=== PATIENT | female | born 1995 | race Caucasian/White ===

== ENCOUNTER 2017-02-25 06:13 | Inpatient (IN) | payer BC ==
--- NOTE | 2017-02-15 11:04 | HP ---
Admitting History and Physical - Primary Care Physician PCP: Jimmie Graves - Admission Chief Complaint: BRCA positive History of Present Illness: 21 year old nulliparous premenapausal female with BRCA mutation and family history of breast cancer . MRI breast 02/03/2017. showed 7 mm ovoid mass lower lateral portion of left breast . US recommended to evaulate new finding, and six month bilateral MRI Birad 0. She is undergoing Bilateral prophylactic mastectomies with reconstruction. History Source: Patient Limitations to Obtaining History: No Limitations - Past Surgical History Additional Past Surgical History: Right thumb trigger finger 1996 - Smoking History Smoking history: Never smoked Have you smoked in the past 12 months: No - Alcohol/Substance Use Hx Alcohol Use: No Home Medications - Allergies Allergies/Adverse Reactions: Allergies Allergy/AdvReac Type Severity Reaction Status Date / Time Penicillins Allergy Verified 02/15/17 11:08 Family Disease History - Family Disease History Other Family History: maternal aunt x2 Breast cancer 32/35. mat 2nd cousin breast ca 30/breast cancer 37 Physical Examination Constitutional: Yes: Well Nourished Breast(s): Yes: Other (A cup breast symmetrical no palpable densities or adenopathy bilaterally) Problem List - Problems (1) BRCA gene mutation positive Code(s): Z15.01 - GENETIC SUSCEPTIBILITY TO MALIGNANT NEOPLASM OF BREAST Z15.02 - GENETIC SUSCEPTIBILITY TO MALIGNANT NEOPLASM OF OVARY Assessment/Plan Bilateral prophylactic mastectomies implant reconstruction
[2017-02-16 14:14] VITALS: BMI 24.0
[2017-02-25] MEDS ORDERED: LIDOCAINE 1%-EPI 1:100,000 30 ML MDV IJ ONE (07:05)
[2017-02-25] MEDS ORDERED: GUM MASTIC/STORAX/MSAL/ALCOHOL 1 DRP DROPSBTL MC ONE (07:05)
[2017-02-25] MEDS ORDERED: BUPIVACAINE HCL/PF 0.5% (5MG/ML) 10 ML VIAL ONE (07:05)
[2017-02-25] MEDS ORDERED: ceFAZolin SODIUM 1 GM VIAL ONE ×2 (07:05→08:17)
[2017-02-25] MEDS ORDERED: GENTAMICIN SO4 80 MG/2 ML VIAL ONE (07:05)
[2017-02-25] MEDS ORDERED: SUCCINYLCHOLINE CHLORIDE 200 MG/10 ML VIAL ONE (07:35)
[2017-02-25] MEDS ORDERED: PROPOFOL 20 ML ONE (07:35)
[2017-02-25] MEDS ORDERED: MIDAZOLAM HCL 2 MG/2 ML SINGLE DOSE VIAL ONE ×2 (07:35)
[2017-02-25] MEDS ORDERED: ROCURONIUM BROMIDE 50 MG/5 ML VIAL ONE ×2 (07:35→09:12)
[2017-02-25] MEDS ORDERED: LIDOCAINE HCL/PF 2% SDV 5ML VIAL ONE (07:37)
[2017-02-25] MEDS ORDERED: DEXAMETHASONE SOD PHOSPHATE/PF 10 MG/ML SDV ONE (07:45)
[2017-02-25] MEDS ORDERED: ROPIVACAINE HCL 0.5% 30ML VIAL ONE (07:45)
[2017-02-25] MEDS ORDERED: ONDANSETRON 4 MG/2 ML VIAL ONE (08:17)
[2017-02-25] MEDS ORDERED: DEXAMETHASONE SOD PHOSPHATE 4 MG/1 ML VIAL ONE (08:17)
[2017-02-25] MEDS ORDERED: DESFLURANE GAS 240 ML BOTTLE IH ONE (08:35)
[2017-02-25] MEDS ORDERED: ONDANSETRON 4 MG/2 ML VIAL IVPB PRN (10:10)
[2017-02-25] MEDS ORDERED: ACETAMINOPHEN 325 MG TABLET (FP) PO PRN (10:10)
[2017-02-25] MEDS ORDERED: DEXTROSE 5%-0.45% SALINE 1,000 ML IV SCH (10:15)
[2017-02-25] MEDS ORDERED: GLYCOPYRROLATE 0.2 MG/1 ML VIAL ONE (10:45)
[2017-02-25] MEDS ORDERED: NEOSTIGMINE METHYLSULFATE 0.5 MG/ML - 10 ML MDV ONE (10:45)
[2017-02-25] MEDS ORDERED: ACETAMINOPHEN 1000 MG/100 ML VIAL (NON FORMULARY) IVPB ONE (11:28)
[2017-02-25] MEDS ORDERED: diazePAM 5 MG TABLET PO PRN (11:28)
[2017-02-25] MEDS ORDERED: oxyCODONE HCL 5 MG TABLET PO PRN (11:28)
[2017-02-25] MEDS ORDERED: PROMETHAZINE HCL 25 MG/1 ML VIAL IVPUSH PRN (11:56)
[2017-02-25] MEDS: HYDROmorphone HCL CARPU-JECT 1 MG/1 ML DISP.SYRIN IVPUSH PRN ×2 (12:28→12:38)
[2017-02-25] MEDS: oxyCODONE HCL 5 MG TABLET PO PRN ×2 (14:02→21:15)
[2017-02-25] MEDS: ACETAMINOPHEN 325 MG TABLET (FP) PO SCH ×2 (18:19→23:56)
--- NOTE | 2017-02-25 18:54 | OP ---
DATE OF OPERATION: 02/25/2017 PREOPERATIVE DIAGNOSIS: High-risk for breast cancer, BRCA2 positive. POSTOPERATIVE DIAGNOSIS: High-risk for breast cancer, BRCA2 positive. PROCEDURE: Bilateral total nipple-sparing mastectomy through an inframammary approach with bilateral direct implant reconstruction with AlloDerm. PRIMARY SURGEON: Farrah Ramos MD SPRINKLER TENDER: QUIANA Lai Primary surgeon for the bilateral direct implant reconstruction: Dr. Farrah Escamilla, with his director of first impressions, QUIANA Vo. There were no complications. ANESTHESIA: General endotracheal anesthesia. Briefly, the patient is a 21-year-old nulliparous premenopausal white female of [place] descent. She has a strong family history with 2 maternal aunts who had breast cancer at age 32 and 35. She also has 2 maternal cousins who had breast cancer at age 30 and 37. Both the patient and her mother tested BRCA2 positive with a 2024 deletion 5 mutation. The patient was seen in consultation regarding risk reduction strategies back in September of 2016. She had undergone close surveillance to that point. She was told about the risk reduction strategies including mastectomy for risk reduction versus tamoxifen versus close surveillance. She was advised just to do close surveillance until her mid 20's. She then decided she wanted to go forward with risk reduction prophylactic mastectomy, and I did speak to her at length regarding this. She has definite concerns about breast cancer and understood that this is not a cosmetic procedure. She still wanted to go forward with the procedure and underwent breast MRI in January 2017, showing a slight density in the lateral aspect of the left breast, which was felt to be benign. Mammography was also performed and was negative. She was brought in for the procedure on February 25, 2017. In the holding area, site verification was made and informed consent was obtained. She was then brought in to the operating room and laid on the OR table in a supine position. Venodynes were placed on the lower extremities. She was given 1 g of Ancef prior to incision. Both breasts were sterilely prepped and draped in the usual fashion. She underwent general endotracheal anesthesia. The patient did undergo prepectoral block prior to coming to the OR, for postoperative pain control. The patient had inframammary incisions marked out bilaterally about 8 cm in length in the inframammary folds. The left mastectomy was 1st approached. Incision was made and the skin edges were everted and the breast was retracted inferiorly using Arjun clamps. The skin flap was raised using the PEAK radiofrequency device superiorly to the level of the clavicle, medially to the level of the sternum, laterally to the level of the latissimus, and inferiorly below the level of the inframammary fold. The breast was taken down off the pectoralis major muscle from inferior medial to superior lateral and completely removed intact. It was oriented with a long lateral and short superior suture and weighed to allow for appropriate cosmetic result. Skin flaps were trimmed for good cosmetic result. A retroareolar biopsy was taken underneath the left nipple-areolar complex and sent for frozen section, came back negative, so the nipple was spared. Hemostasis was achieved and the wound was copiously irrigated with warm sterile saline. At this point the right breast was approached, and again the inferior mammary incision was used, symmetrical to the left mastectomy incision. The skin edges were everted and the breast was retracted inferiorly using [place] clamps, and again the skin flap was raised using the PEAK radiofrequency device superiorly to the level of the clavicle, medially to the level of the sternum, laterally to the level of the latissimus, and inferiorly below the level of the inframammary fold. The breast was taken down off the pectoralis major muscle using electrocautery, from inferior medial to superior lateral and completely removed intact. It was oriented with a long lateral and short superior suture and weighed to allow for appropriate cosmetic result. Skin flaps were trimmed for good cosmetic result. All breast tissue was sent to pathology separately labeled right and left breast in formalin. A retroareolar biopsy was taken underneath the right nipple-areolar complex and sent for frozen section and came back negative, so the right nipple was spared. Hemostasis was achieved and the wound was copiously irrigated with warm sterile saline. At this point, Dr. Escamilla became the primary surgeon and performed bilateral direct implant reconstructions in the subpectoral location. AlloDerm was sutured into the inferolateral aspects of both pectoralis major muscle flaps for the direct implant reconstruction. Two Glen drains will be placed around each implant, brought through separate stab incisions on the lateral skin flaps and secured in place using 3-0 nylon suture. All wounds will be closed separately by plastic surgery using interrupted 3-0 deep dermal PDS, and a running 4-0 subcuticular PDS. Mastisol, Steri-Strips applied over the wounds. The patient will be placed in a surgical bra postoperatively and extubated and brought to the post-anesthesia care unit, where she will be admitted postoperatively for pain management and wound management. All sponge and needle counts were correct at this point in the case. We did use the SPY intraoperative skin perfusion device during the case, which showed good skin perfusion. Estimated blood loss was about 100 mL at this point in the case and she was hemodynamically stable throughout. FARRAH RAMOS M.D. [id number]
[2017-02-25] MEDS ORDERED: ZOLPIDEM TARTRATE 5 MG TABLET PO PRN (22:00)
[2017-02-25] MEDS ORDERED: GABAPENTIN 300 MG CAPSULE (FP) PO SCH (22:00)
[2017-02-25 22:44] VITALS: BP 115/63; TEMP 99.4
[2017-02-26] MEDS: oxyCODONE HCL 5 MG TABLET PO PRN (04:15)
[2017-02-26] MEDS: ACETAMINOPHEN 325 MG TABLET (FP) PO SCH (06:17)
[2017-02-26 08:40] LABS: MCH 30.4 pg (25.7-33.7); MCHC 34.6 g/dl (32.0-36.0); MEAN CELL VOLUME 87.7 fl (80-96); MEAN PLT VOLUME 8.4 fl (7.5-11.1); PLATELET COUNT 240 K/MM3 (134-434); RDW 12.4 % (11.6-15.6); WHITE BLOOD COUNT 13.3 K/mm3 (4.0-10.8)
--- NOTE | 2017-02-26 09:07 | PN ---
Progress Note, Physician Chief Complaint: S/P bilateral mastectomy POD#1 History of Present Illness: Patient seen at the bedside and is without any complaints this am. She has good pain control and is tolerating po well. - Current Medication List Current Medications: Active Medications Acetaminophen (Tylenol -) 650 mg PO Q4H PRN PRN Reason: FEVER Last Admin: 02/25/17 14:03 Dose: 650 mg Acetaminophen (Tylenol -) 650 mg PO Q6H JUNIOR Stop: 02/28/17 17:59 Last Admin: 02/26/17 06:17 Dose: 650 mg Diazepam (Valium -) 5 mg PO Q6H PRN PRN Reason: WITHDRAWAL(CONT SUBST) Stop: 02/28/17 11:31 Gabapentin (Neurontin -) 300 mg PO BID JUNIOR Last Admin: 02/25/17 21:14 Dose: 300 mg Hydromorphone HCl (Dilaudid Injection -) 0.5 mg IVPUSH [id number] PRN PRN Reason: PAIN Stop: 02/28/17 11:55 Last Admin: 02/25/17 12:38 Dose: 0.5 mg Dextrose/Sodium Chloride (D5-1/2ns -) 1,000 mls @ 100 mls/hr IV ASDIR JUNIOR Levofloxacin (Levaquin 500 Mg Premixed Ivpb -) 100 mls @ 100 mls/hr IVPB DAILY JUNIOR Ondansetron HCl (Zofran Injection) 4 mg IVPB Q6H PRN PRN Reason: NAUSEA AND/OR VOMITING Oxycodone HCl (Roxicodone -) 5 mg PO Q4H PRN PRN Reason: PAIN Stop: 02/28/17 11:29 Oxycodone HCl (Roxicodone -) 10 mg PO Q4H PRN PRN Reason: PAIN Last Admin: 02/26/17 04:15 Dose: 10 mg Zolpidem Tartrate (Ambien -) 5 mg PO HS PRN PRN Reason: Insomnia - Objective Vital Signs: Vital Signs Temperature 99.4 F 02/25/17 22:39 Pulse Rate 93 H 02/25/17 22:39 Respiratory Rate 18 02/26/17 08:55 Blood Pressure 115/63 02/25/17 22:39 O2 Sat by Pulse Oximetry (%) 95 02/26/17 08:55 Constitutional: Yes: Well Nourished, Calm Breast(s): Yes: Other (Bilateral flaps are warm with mild ecchymosis noted left more than right. [place] nipple/areola complex is pink. ARTURO X4 with serosanginous discharge noted.) Labs: CBC, BMP 02/26/17 07:25 Problem List - Problems (1) BRCA gene mutation positive Assessment/Plan: Plan: Discharge home today. Teach ARTURO monitoring Home with pain and axbx meds Make appt to see Dr. Graves and Dr. Escamilla next week. Code(s): Z15.01 - GENETIC SUSCEPTIBILITY TO MALIGNANT NEOPLASM OF BREAST Z15.02 - GENETIC SUSCEPTIBILITY TO MALIGNANT NEOPLASM OF OVARY
[2017-02-26 09:47] VITALS: PULSE 96
--- NOTE | 2017-02-26 09:58 | DS ---
Physical Examination Vital Signs: Vital Signs Temperature 99.4 F 02/25/17 22:39 Pulse Rate 96 H 02/26/17 09:47 Respiratory Rate 18 02/26/17 08:55 Blood Pressure 115/63 02/25/17 22:39 O2 Sat by Pulse Oximetry (%) 98 02/26/17 09:47 Constitutional: Yes: Well Nourished, Calm Breast(s): Yes: Left (Left flap warm with steristrips intact. No discharge or erythema. ARTURO intact) Wound/Incision: Yes: Clean/Dry Labs: CBC, BMP 02/26/17 07:25 Discharge Summary Reason For Visit: GENETIC SUSCEPTIBILITY Current Active Problems BRCA gene mutation positive (Acute) Condition: Good - Instructions Diet, Activity, Other Instructions: BREAST SURGERY INSTRUCTIONS Juan Graves M.D., CRISTY Graves M.D., CRISTY Bernstein M.D., FACS 1. Please call the office at to make a follow up appointment with your surgeon. This number can be also used for any urgent issues you may have. 2. Call us immediately if any of the following occur: *Bleeding from the incision or drain site (a small amount is normal) *Fever or chills *Redness and worsening tenderness around the surgical site *Drainage of pus or fluid from the incision or drain site 3. You may change the surgical dressing two (2) days after your surgery, and may shower then. If you have drains, you may shower after they have been removed, until then take a sponge bath. 4. It is normal for there to be some bruising and tenderness around the surgical site, and the breast may also be firm in this area. 5. Please wear a comfortable bra (sports or surgical bra) all day and all night until your first follow-up visit with your surgeon. 6. The pain medicine you have been prescribed may make you constipated; make sure you drink plenty of water. You may use an over the counter laxative if needed. 7. You may resume your normal diet after surgery, although you may want to avoid rich foods for the first twenty-four (24) hours after surgery. Alcoholic drinks should be avoided while taking the prescribed pain medicine. 8. You may resume normal activities as long as there is no discomfort, but do not do upper body exercises until after your follow-up appointment. Do not lift anything heavier than a large phone book. You may resume driving once you have stopped taking the prescribed pain medicine and feel comfortable doing arm movements. Referrals: Jimmie Graves MD [Staff Physician] - Disposition: HOME - Home Medications Comprehensive Discharge Medication List: Ambulatory Orders Ciprofloxacin HCl [Cipro] 500 mg PO BID #20 tablet 02/26/17 Oxycodone HCl/Acetaminophen [Percocet 5-325 mg Tablet -] 1 - 2 tab PO Q6H #30 tablet MDD 6 02/26/17
[2017-02-26] MEDS ORDERED: LEVOFLOXACIN 500 MG IVPB 100 ML IVPB SCH (10:00)
--- NOTE | 2017-02-26 10:32 | PN ---
Progress Note, Physician Chief Complaint: Pt is s/p bilateral mastectomies with direct insertion of implants and alloderm. She is doing well with no complaints. Pain well controlled with oral med. Denies any sob, nausea, vomiting, fever or chills. - Current Medication List Current Medications: Active Medications Acetaminophen (Tylenol -) 650 mg PO Q4H PRN PRN Reason: FEVER Last Admin: 02/25/17 14:03 Dose: 650 mg Acetaminophen (Tylenol -) 650 mg PO Q6H JUNIOR Stop: 02/28/17 17:59 Last Admin: 02/26/17 06:17 Dose: 650 mg Diazepam (Valium -) 5 mg PO Q6H PRN PRN Reason: WITHDRAWAL(CONT SUBST) Stop: 02/28/17 11:31 Gabapentin (Neurontin -) 300 mg PO BID [facility] Last Admin: 02/25/17 21:14 Dose: 300 mg Hydromorphone HCl (Dilaudid Injection -) 0.5 mg IVPUSH [id number] PRN PRN Reason: PAIN Stop: 02/28/17 11:55 Last Admin: 02/25/17 12:38 Dose: 0.5 mg Dextrose/Sodium Chloride (D5-1/2ns -) 1,000 mls @ 100 mls/hr IV ASDIR JUNIOR Levofloxacin (Levaquin 500 Mg Premixed Ivpb -) 100 mls @ 100 mls/hr IVPB DAILY JUNIOR Ondansetron HCl (Zofran Injection) 4 mg IVPB Q6H PRN PRN Reason: NAUSEA AND/OR VOMITING Oxycodone HCl (Roxicodone -) 5 mg PO Q4H PRN PRN Reason: PAIN Stop: 02/28/17 11:29 Oxycodone HCl (Roxicodone -) 10 mg PO Q4H PRN PRN Reason: PAIN Last Admin: 02/26/17 04:15 Dose: 10 mg Zolpidem Tartrate (Ambien -) 5 mg PO HS PRN PRN Reason: Insomnia - Objective Vital Signs: Vital Signs Temperature 99.4 F 02/25/17 22:39 Pulse Rate 96 H 02/26/17 09:47 Respiratory Rate 18 02/26/17 08:55 Blood Pressure 115/63 02/25/17 22:39 O2 Sat by Pulse Oximetry (%) 98 02/26/17 09:47 Constitutional: Yes: Well Nourished, No Distress Eyes: Yes: WNL HENT: Yes: WNL Neck: Yes: WNL Cardiovascular: Yes: WNL Respiratory: Yes: WNL Gastrointestinal: Yes: WNL ...Rectal Exam: Yes: Deferred Breast(s): Yes: Other (Bilateral breasts with appropriated swelling and ecchymosis. No s/s of infections. Incisions with steri strips in place. Nipples viable. ARTURO drains in place holding suction) Musculoskeletal: Yes: WNL Extremities: Yes: WNL Edema: No Integumentary: Yes: WNL Wound/Incision: Yes: Clean/Dry, Steri Strips, Dressing Dry and Intact Neurological: Yes: WNL ...Motor Strength: WNL Psychiatric: Yes: WNL Additional Findings/Remarks: Pt will be d/c home today. She will follow up in the office next week. She is unable to get surgical site or drains wet. No heavy lifting, pushing or pulling. Pt will cont with surgical bra. Labs: CBC, BMP 02/26/17 07:25
--- NOTE | 2017-02-26 13:02 | OP ---
DATE OF SURGERY: 02/25/2017 (This is a combined dictation with Dr. Farrah Graves for bilateral implant and AlloDerm reconstruction. ) PROCEDURE: 1. Right immediate breast reconstruction utilizing immediate insertion of silicone breast implant and DermACELL reconstruction. 2. Left immediate breast reconstruction utilizing immediate insertion of silicone breast implant and DermACELL reconstruction. 3. Intravenous injection of indocyanine green dye and intraoperative diagnostic evaluation of non-coronary intraoperative fluorescein vascular angiography x 2. PREOPERATIVE DIAGNOSES: 1. Bilateral acquired chest wall deformity status post bilateral mastectomy (611.89). 2. Personal history of genetic carcinoma. POSTOPERATIVE DIAGNOSES: 1. Bilateral acquired chest wall deformity status post bilateral mastectomy (611.89). 2. Personal history of genetic carcinoma. SURGEON: Jacy Escamilla MD [employer] OPERATOR: Uzma Friend PA-C ANESTHESIA: General ANESTHESIOLOGIST: OPERATIVE PROCEDURE IN DETAIL: The patient was taken to the operating room. After induction of general anesthesia in the supine position, both arms were extended and padded. Venodyne boots were placed. The entire chest wall was painted with ChloraPrep solution over its entire extent, and sterile drapes were placed in the usual fashion. The markings, which had been made in the standing position preoperatively, were reoutlined with the patient's knowledge. Time-out procedure was performed. Attention was turned by Dr. Farrah Graves to the mastectomies. Bilateral inframammary incisions were made and Dr. Graves performed mastectomies. This will be dictated under separate cover. Upon completion of the mastectomies, the wounds were copiously irrigated and attention was turned to the right breast. A subpectoral dissection was begun on the right breast, superiorly from the second rib, medially to the sternal fibers, and down to the inframammary fold, elevating the pectoralis major muscle from its insertion. At this point, an 8.0 x 16.0 sheet of DermACELL was brought into the field and sutured superiorly along the pectoralis major muscle after rehydration. This was carried along the lateral mammary fold and down the side of the breast reconstruction. At this point, a AlloDerm implant was chosen. The left breast tissue removed was 212 gm, and the right breast approximately 178 gm. This implant was placed and then sutured with 3-0 Vicryl suture continued along the inframammary fold, completely covering the implant itself. The exact same procedure was carried out symmetrically on the opposite breast, also placing a Natrelle 410 highly-cohesive anatomically-shaped silicone implant of style FF, 375 mL in the same subpectoral pocket. Good symmetry was seen in the sitting position. After the implants were in place, the patient was injected with 10 mL of Isocyanide green dye and the Spy imaging system was brought into the field. The skin flowed to the right and left breasts and the nipple areolar complex, and the entire skin flaps were evaluated and seen to be viable with good blood flow. Spy intraoperative angiogram showed good flow bilaterally Two Kel-Baez drains were brought out through separate stab wounds laterally. The Smart Infuser pump catheter was inserted medially and into the subpectoral position. Both wounds were closed symmetrically using 3-0 PDS suture on the deep tissue, 3-0 in a deep dermal fashion, and 4-0 in a subcuticular fashion. Both wounds were dressed sterilely with Mastisol and Steri-Strips with a surgical bra and a compression strap. The patient tolerated the procedure well. She was awakened, extubated and transferred to the recovery room in satisfactory condition. The behavioral assistant was present during the entire portion of the operation and closure. FARRAH ESCAMILLA M.D. [id number]
--- NOTE | 2017-03-03 11:19 | PATH ---
Surgical Pathology Report Patient Name: TAMIKO MARTINS Med. Rec. #: [id number] /Age/Gender: 1995 (Age: 21) / F Account: [id number] Location: [facility] Taken: 02/25/2017 Received: 02/25/2017 Reported: 03/01/2017 Physicians: Jimmie Graves M.D. Specimen(s) Received A: RIGHT BREAST RETROAREOLAR. FS#1 B: LEFT BREAST RETROAREOLAR. FS#2 C: RIGHT BREAST MASTECTOMY D: LEFT BREAST MASTECTOMY Clinical History BRCA2 + Intraoperative Consult Diagnosis A. Right retroareolar biopsy, frozen section: Negative for malignancy. B. Left retroareolar biopsy, frozen section: Negative for malignancy. [place], 02/25/17 Final Diagnosis A. RIGHT BREAST, RETROAREOLAR BIOPSY: BENIGN BREAST TISSUE. B. LEFT BREAST, RETROAREOLAR BIOPSY: BENIGN BREAST TISSUE. C. RIGHT BREAST, NIPPLE SPARING MASTECTOMY: BENIGN BREAST TISSUE WITH FIBROCYSTIC CHANGES INCLUDING USUAL DUCTAL HYPERPLASIA (UDH), STROMAL FIBROSIS, AND DUCTAL DILATATION. D. LEFT BREAST, NIPPLE SPARING MASTECTOMY: BENIGN BREAST TISSUE WITH FIBROCYSTIC CHANGES INCLUDING STROMAL FIBROSIS AND DUCTAL DILATATION. Electronically Signed Cruzito Haywood M.D. Gross Description A. Received fresh for frozen section evaluation, labeled "right breast retroareolar biopsy" is a 1.2 x 1.0 x 0.2 cm portion of red and yellow soft tissue. Frozen section is performed on the specimen. The frozen section residue is entirely submitted in one cassette. B. Received fresh for frozen section evaluation, labeled "left breast retroareolar biopsy" is a 1.3 x 1.2 x 0.2 cm portion of red and yellow soft tissue. Frozen section is performed on the specimen. The frozen section residue is entirely submitted in one cassette. C. Received in formalin, labeled "right breast mastectomy," is a 166 gram, 11.0 x 10.5 x 3.2 cm. right mastectomy specimen with a short suture presumably marking the superior aspect and a long suture presumably marking the lateral aspect of the specimen. There is no skin or nipple present. The deep margin is inked black and the anterior soft tissue margin is inked blue. The specimen is serially sectioned from lateral to medial. Sectioning reveals multiple foci of white fibrous tissue. No definitive masses are identified. Recyclable [employer] Sorter sections are submitted in 12 cassettes as follows: 1-2-upper outer quadrant; 3-5-lower outer quadrant; 6-7-upper inner quadrant; 8-10-lower inner quadrant; 11-anterior soft tissue margin; 12-deep margin. D. Received in formalin, labeled "left breast mastectomy," is a 172 gram, 16.0 x 9.5 x 3.0 cm. left mastectomy specimen with a short suture presumably marking the superior aspect and a long suture presumably marking the lateral aspect of the specimen. There is no skin or nipple present. The deep margin is inked black and the anterior soft tissue margin is inked blue. The specimen is serially sectioned from medial to lateral. Sectioning reveals multiple foci of white fibrous tissue. No definitive masses are identified. Recyclable [employer] Sorter sections are submitted in 11 cassettes as follows: 1-3-upper outer quadrant; 4-5-lower outer quadrant; 6-7-upper inner quadrant; 8-9-lower inner quadrant; 10-anterior soft tissue margin; 11-deep margin. Time to formalin fixation: 60 minutes Total formalin fixation time: Approximately 31 hours. 02/26/2017 [facility]02/26/2017
== END 2017-02-26 13:52 | disposition home or self-care (01) | DRG 585 ==
LOC: FM/S 06:13
PROVIDERS: ADMIT Surgery Surgical Oncology; ATTEND Surgery Surgical Oncology
PROC: 0HTV0ZZ Resection of Bilateral Breast, Open Approach (ICD-10-PCS; principal; 2017-02-25 08:37)
PROC: 0HRV0JZ Replacement of Bilateral Breast with Synthetic Substitute, Open Approach (ICD-10-PCS; 2017-02-25 08:37)
DX: Z40.01 Encounter for prophylactic removal of breast (principal); M95.4 Acquired deformity of chest and rib; Z80.3 Family history of malignant neoplasm of breast; Z15.01 Genetic susceptibility to malignant neoplasm of breast; Z15.02 Genetic susceptibility to malignant neoplasm of ovary
CPT/HCPCS: 36415; 76641-TC-50; 84703; 85027; 88305-TC; 88307-TC; 88331-TC; 94010; 94760